=== PATIENT | female | born 1955 | race Caucasian/White ===

== ENCOUNTER 2025-01-19 20:48 | Inpatient (IN) | payer MEDICARE, OTHER ==
[~2025-01-19] VITALS: Ht 175.3 cm; Wt 70.3 kg
[2025-01-19] MEDS ORDERED: ACETAMINOPHEN ES 500 MG TABLET ONE (21:25)
[2025-01-19] MEDS: ACETAMINOPHEN ES 500 MG TABLET PO ONE (21:27)
[2025-01-19] MEDS ORDERED: HYDROCODONE/APAP 5/325MG TABLET ONE (22:06)
[2025-01-19] MEDS: HYDROCODONE/APAP 5/325MG TABLET PO ONE (22:09)
[2025-01-19 22:56] LABS: BASOPHILS % (AUTO) 0.6 % (0.0-2.0); EOSINOPHILS # (AUTO) 0.1 K/uL (0.0-0.7); EOSINOPHILS % (AUTO) 0.7 % (0.0-6.0); HEMATOCRIT 33 % (33-45); HEMOGLOBIN 11.3 g/dL (11.5-14.8); LYMPHOCYTES # (AUTO) 1.4 K/uL (0.8-4.8); LYMPHOCYTES % (AUTO) 20.9 % (20.0-44.0); MEAN CORPUSCULAR HEMOGLOBIN 36 PG (26.0-33.0); MEAN CORPUSCULAR HGB CONC 34 g/dl (31.0-36.0); MEAN CORPUSCULAR VOLUME 106 fL (82-100); MONOCYTES # (AUTO) 0.5 K/uL (0.1-1.30); MONOCYTES % (AUTO) 7.1 % (2.0-12.0); NEUTROPHILS # (AUTO) 4.8 K/uL (1.8-8.9); NEUTROPHILS % (AUTO) 70.7 % (43.0-81.0); PLATELET COUNT (AUTO) 307 K/uL (150-450); RED BLOOD CELL COUNT(AUTO) 3.15 MIL/uL (4.0-5.2); RED CELL DISTRIBUTION WIDTH 13.9 % (11.5-15.0); WHITE BLOOD COUNT (AUTO) 6.8 K/uL (4.3-11.0)
[2025-01-19] MEDS ORDERED: ACETAMINOPHEN 325 MG TABLET PO PRN (23:00)
[2025-01-19] MEDS ORDERED: hydrALAZINE HCL IV 20 MG VIAL IV PRN (23:00)
[2025-01-19 23:04] LABS: CALCIUM, SERUM 9.5 mg/dL (8.5-10.1); CREATININE 1.2 mg/dL (0.6-1.3); POTASSIUM 3.4 mmol/L (3.5-5.1)
[2025-01-19 23:15] LABS: INR 1.03 (0.91-1.10); PARTIAL THROMBOPLASTIN TIME 27.7 SEC (24.3-34.3); PROTHROMBIN TIME 10.9 SECS (9.2-11.1)
[2025-01-19] MEDS ORDERED: ONDANSETRON HCL/PF 4 MG/2 ML VIAL ONE (23:59)
[2025-01-19] MEDS ORDERED: MORPHINE SULFATE INJ 2 MG/ML DISP.SYRIN ONE (23:59)
[2025-01-20] MEDS: MORPHINE SULFATE INJ 2 MG/ML DISP.SYRIN IV PRN ×2 (00:05→10:57)
[2025-01-20] MEDS: ONDANSETRON HCL/PF 4 MG/2 ML VIAL IVP PRN (00:05)
[2025-01-20] MEDS: TRAZODONE 50 MG TABLET PO ONE (02:00)
[2025-01-20 06:25] LABS: BASOPHILS % (AUTO) 0.5 % (0.0-2.0); EOSINOPHILS % (AUTO) 0.8 % (0.0-6.0); HEMATOCRIT 32 % (33-45); HEMOGLOBIN 11.1 g/dL (11.5-14.8); LYMPHOCYTES # (AUTO) 2.1 K/uL (0.8-4.8); LYMPHOCYTES % (AUTO) 32.5 % (20.0-44.0); MEAN CORPUSCULAR HEMOGLOBIN 36 PG (26.0-33.0); MEAN CORPUSCULAR HGB CONC 34 g/dl (31.0-36.0); MEAN CORPUSCULAR VOLUME 105 fL (82-100); MONOCYTES # (AUTO) 0.5 K/uL (0.1-1.30); MONOCYTES % (AUTO) 7.8 % (2.0-12.0); NEUTROPHILS # (AUTO) 3.7 K/uL (1.8-8.9); NEUTROPHILS % (AUTO) 58.4 % (43.0-81.0); PLATELET COUNT (AUTO) 298 K/uL (150-450); RED BLOOD CELL COUNT(AUTO) 3.08 MIL/uL (4.0-5.2); RED CELL DISTRIBUTION WIDTH 13.8 % (11.5-15.0); WHITE BLOOD COUNT (AUTO) 6.4 K/uL (4.3-11.0)
[2025-01-20 06:49] LABS: ALBUMIN 3.5 g/dL (3.4-5.0); BILIRUBIN,TOTAL 0.3 mg/dL (0.2-1.0); CALCIUM, SERUM 9.4 mg/dL (8.5-10.1); MAGNESIUM 2.1 mg/dL (1.8-2.4); PHOSPHORUS 4.2 mg/dL (2.5-4.9); POTASSIUM 3.3 mmol/L (3.5-5.1); TOTAL PROTEIN, SERUM 7.4 g/dL (6.4-8.2)
[2025-01-20 07:00] VITALS: BP 123/65; TEMP 97.5; O2SAT 97
[2025-01-20] MEDS: POTASSIUM CL. PREMIX PERIPHER. 50 ML IV SCH (08:41)
[2025-01-20] MEDS ORDERED: LORA-259 PO (10:42)
[2025-01-20] MEDS ORDERED: CALC-1276 PO (10:42)
[2025-01-20] MEDS ORDERED: CYAN500T15 PO (10:42)
[2025-01-20] MEDS ORDERED: GABA600T12 PO (10:42)
[2025-01-20] MEDS ORDERED: DICL100G34 TP (10:42)
[2025-01-20] MEDS ORDERED: MELA1TAB17 PO (10:42)
[2025-01-20] MEDS ORDERED: POLY15DR31 OP (10:42)
[2025-01-20] MEDS ORDERED: ATOR20TA PO (10:42)
[2025-01-20] MEDS ORDERED: HYDR-4303 PO (10:42)
[2025-01-20] MEDS ORDERED: BACL10TA PO (10:42)
[2025-01-20] MEDS ORDERED: LOSA25TA27 PO (10:42)
[2025-01-20] MEDS ORDERED: PYRI100T10 PO (10:42)
[2025-01-20] MEDS ORDERED: CELE200C PO (10:42)
[2025-01-20] MEDS ORDERED: ACET-73 PO (10:42)
[2025-01-20] MEDS ORDERED: CARV6.252 PO (10:42)
[2025-01-20] MEDS ORDERED: CHOL100043 PO (10:42)
[2025-01-20] MEDS ORDERED: POLY17PO4 PO (10:42)
[2025-01-20] MEDS ORDERED: TRAM50TA2 PO (10:42)
[2025-01-20] MEDS ORDERED: DULO60CA45 PO (10:42)
[2025-01-20] MEDS ORDERED: AMLO-212 PO (10:42)
[2025-01-20] MEDS ORDERED: PANT40TA49 PO (10:42)
[2025-01-20] MEDS ORDERED: ZOLP10TA2 PO (10:42)
[2025-01-20] MEDS ORDERED: SERT100T12 PO (10:42)
[2025-01-20] MEDS: POLYVINYL ALCOHOL 15 ML BOTTLE RIGHTEYE SCH (12:35)
[2025-01-20 16:00] VITALS: BP 145/83; TEMP 97.5; TEMP 98.2; O2SAT 96
[2025-01-20] MEDS ORDERED: LORAZEPAM 1 MG TABLET PO PRN (17:00)
[2025-01-20] MEDS: DICLOFENAC TOPICAL 100 GM TUBE TP SCH (17:00)
[2025-01-20] MEDS ORDERED: HOME MED MISCELLANEOUS XX SCH (17:00)
[2025-01-20] MEDS: TRAMADOL HCL 50 MG TABLET PO SCH (17:55)
[2025-01-20] MEDS: GABAPENTIN 300 MG CAPSULE PO SCH (17:55)
[2025-01-20] MEDS: LOSARTAN POTASSIUM 25 MG TABLET PO SCH (17:56)
[2025-01-20] MEDS: PANTOPRAZOLE 40 MG TABLET.DR PO SCH (17:56)
[2025-01-20] MEDS: CARVEDILOL 6.25 MG TABLET PO SCH (17:56)
[2025-01-20] MEDS: DULOXETINE HCL 30 MG CAPSULE.DR PO SCH (18:00)
[2025-01-20] MEDS: BACLOFEN (10 MG) 10 MG TABLET PO SCH (18:00)
[2025-01-20] MEDS: ACETAMINOPHEN ES 500 MG TABLET PO SCH (18:01)
[2025-01-20] MEDS: HYDROCODONE/APAP 5/325MG TABLET PO SCH (21:02)
[2025-01-20] MEDS: ZOLPIDEM TARTRATE 10 MG TABLET PO SCH (21:02)
[2025-01-20] MEDS: ATORVASTATIN 10 MG TABLET PO SCH (21:02)
[2025-01-20 21:37] VITALS: BP 136/85; TEMP 98.2; O2SAT 96
[2025-01-21 06:29] LABS: BASOPHILS % (AUTO) 0.4 % (0.0-2.0); EOSINOPHILS % (AUTO) 0.7 % (0.0-6.0); HEMATOCRIT 33 % (33-45); HEMOGLOBIN 11.3 g/dL (11.5-14.8); LYMPHOCYTES # (AUTO) 1.4 K/uL (0.8-4.8); LYMPHOCYTES % (AUTO) 22.2 % (20.0-44.0); MEAN CORPUSCULAR HEMOGLOBIN 36 PG (26.0-33.0); MEAN CORPUSCULAR HGB CONC 34 g/dl (31.0-36.0); MEAN CORPUSCULAR VOLUME 107 fL (82-100); MONOCYTES # (AUTO) 0.6 K/uL (0.1-1.30); MONOCYTES % (AUTO) 9.3 % (2.0-12.0); NEUTROPHILS # (AUTO) 4.4 K/uL (1.8-8.9); NEUTROPHILS % (AUTO) 67.4 % (43.0-81.0); PLATELET COUNT (AUTO) 295 K/uL (150-450); RED BLOOD CELL COUNT(AUTO) 3.13 MIL/uL (4.0-5.2); WHITE BLOOD COUNT (AUTO) 6.5 K/uL (4.3-11.0)
[2025-01-21 06:56] LABS: CREATININE 0.8 mg/dL (0.6-1.3); POTASSIUM 4.2 mmol/L (3.5-5.1)
[2025-01-21 07:13] LABS: CALCIUM, SERUM 9.3 mg/dL (8.5-10.1)
[2025-01-21 08:00] VITALS: BP 125/85; TEMP 97.5; O2SAT 98
[2025-01-21] MEDS: PYRIDOXINE HCL 50 MG TABLET PO SCH (08:32)
[2025-01-21] MEDS: POLYVINYL ALCOHOL 15 ML BOTTLE EACHEYE PRN (08:32)
[2025-01-21] MEDS: CHOLECALCIFEROL 1,000 UNIT TABLET (VIT D3) PO SCH (08:32)
[2025-01-21] MEDS: CELECOXIB 100 MG CAPSULE PO SCH (08:33)
[2025-01-21] MEDS: SERTRALINE HCL 50 MG TABLET PO SCH (08:34)
[2025-01-21] MEDS: CALCIUM CARB 600MG /VIT D 1 EACH TABLET PO SCH (08:34)
[2025-01-21] MEDS: POLYETHYLENE GLYCOL 3350 17 GM POWD.PACK PO SCH (08:35)
[2025-01-21] MEDS: AMLODIPINE BESYLATE 5 MG TABLET PO SCH (08:37)
[2025-01-21] MEDS: HEPARIN SODIUM, PORCINE 5000 UNITS/1 ML VIAL SQ SCH (08:37)
[2025-01-21] MEDS: CYANOCOBALAMIN 500 MCG TABLET PO SCH (08:38)
[2025-01-21 20:00] VITALS: BP 122/78; TEMP 97.9; O2SAT 98
[2025-01-21 21:12] VITALS: BP 122/78; TEMP 97.9; O2SAT 98
[2025-01-22 08:00] VITALS: BP 138/87; TEMP 98.2; O2SAT 97
[2025-01-22 16:00] VITALS: BP 119/66; TEMP 98; O2SAT 100
[2025-01-22 20:00] VITALS: BP 129/77; TEMP 97.9; O2SAT 99
[2025-01-23] MEDS ORDERED: Hydrocodone/Apap 5/325MG PO (09:43)
[2025-01-23] MEDS ORDERED: TRAM50TA2 PO (09:43)
[2025-01-23] MEDS ORDERED: HEPA50008 SQ (09:43)
[2025-01-23] MEDS ORDERED: Polyvinyl Alcohol RIGHTEYE (09:43)
[2025-01-23] MEDS ORDERED: POLY17PO4 PO (09:43)
[2025-01-23] MEDS ORDERED: HYDR-3980 PO (09:43)
[2025-01-23 11:08] VITALS: BP 151/77; TEMP 98.1; O2SAT 98
[2025-01-23 13:00] VITALS: TEMP 98.1
== END 2025-01-23 13:50 | DRG 534 ==
LOC: ER 20:58 → MED 01-20 00:19
PROVIDERS: ADMIT Internal Medicine; ATTEND Nurse Practitioner Acute Care
DX: S72.391A Other fracture of shaft of right femur, initial encounter for closed fracture (principal); M97.01XA Periprosthetic fracture around internal prosthetic right hip joint, initial encounter; D50.9 Iron deficiency anemia, unspecified; E87.6 Hypokalemia; W19.XXXA Unspecified fall, initial encounter; I10 Essential (primary) hypertension; G89.29 Other chronic pain; Y93.9 Activity, unspecified; Y92.89 Other specified places as the place of occurrence of the external cause; S80.11XA Contusion of right lower leg, initial encounter; Z99.3 Dependence on wheelchair; Z96.642 Presence of left artificial hip joint; F99 Mental disorder, not otherwise specified; Z71.6 Tobacco abuse counseling; F17.210 Nicotine dependence, cigarettes, uncomplicated; Z66 Do not resuscitate
CPT/HCPCS: 36415; 71045-TC; 72170-TC; 73552; 73564-TC; 80048-TC; 80053-TC; 83735-TC; 84100-TC; 85025-TC; 85730-TC; 86850-TC; 87081-TC; A4223; G0378; J1644; J2270; J2405; J3480